=== PATIENT | male | born 1935 | race Caucasian/White ===

== ENCOUNTER → 2021-06-17 09:32 | Outpatient (CLI) | payer MEDICARE, OTHER, SELFPAY ==
--- NOTE | 2021-06-17 | DI.RAD.S_ITS ---
PROCEDURE: FL BARIUM SWALLOW W SPEECH INDICATIONS: Cerebral infarction, unspecified COMPARISON: None. TECHNIQUE: Examination was conducted in conjunction with speech pathology per standard protocol. In the lateral projection, filming was performed of the patient swallowing. AP projection filming may also be performed with patient swallowing. COMPARISON: FINDINGS: Cervical spondylosis and facet disease. Function: The oral preparatory phase appears normal, with proper containment. The subsequent oral propulsive phase, pharyngeal phase, and esophageal phase of swallowing also appear normal with all proffered substances. No laryngotracheal penetration or aspiration. There is moderate residue. There was moderate prolonged transit of the calibrated barium tablet at the distal esophagus. Esophageal dysmotility is observed. Morphology: No cricopharyngeal bar is identified. No cervical esophageal webs. No Zenker's diverticulum. No strictures. IMPRESSION: No aspiration. Moderate residue. Moderately prolonged transit of barium tablet at the distal esophagus as above. Esophageal dysmotility Dictated by: Matheus Rodriguez M.D. on 06/17/2021 at 14:08 Approved by: Matheus Rodriguez M.D. on 06/17/2021 at 14:09
--- NOTE | 2021-06-18 16:02 | ST.SWALLOW ---
Visit Care Team Role Provider Type Antonio Abbasi MD Attending Provider Non-Staff Primary Care Provider Referring Provider Specialty: Internal Medicine Address: [address] [place] [address], [place], [address] Email: Modified Barium Swallow Study APPLICATION SYSTEMS ADMINISTRATOR Modified Barium Swallow Study Start: 06/17/21 14:41 Freq: Status: Active Protocol: Document 06/18/21 14:52 LNK (Rec: 06/18/21 15:52 LNK [id number]) Modified Barium Swallow Study Total Time Visit Start Time 10:30 Visit Stop Time 11:00 Total Visit Minutes 30 Referral Referring Physician Antonio Abbasi MD Reason for Referral dysphagia Setting Setting Outpatient Care Patient Information Identification Type Name,Date of Patient History Pt was seen for a Modified Barium Swallow Study (MBSS) secondary to c/o difficulty with swallowing. 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 He also reported that he was diagnosed with a hiatal hernia years ago. Pt describes his swallowing as difficult I have to swallow very hard. He reports pills, foods and liquids get caught in his throat and he coughs frequently during the day. At times, he stated, he has regurgitated undigested foods. Subjective Observations Pt was seated in the fluoroscopy chair. Instruction and procedures were described to the pt, who indicated he understood and agreed to proceed. Patient Positioning Position View Lat-A/P Imaging Lateral View Textures Administered Trials Presented Thin Liquid via Spoon,Thin Liquid via Cup,Pudding Thick Liquid via Spoon,Regular Textures Oral Phase Source: MBSIMP (TM) (C) Bolus Specific Scoring Grid Lip Closure No Impairment (WNL) Tongue Control During Bolus Hold No Impairment (WNL) Bolus Prep/Mastication No Impairment (WNL) Bolus Transport/Lingual Motion Minimal Impairment A/P Lingual Propulsion Delay No Oral Residue No Impairment (WNL) Nasal Regurgitation No Additional Oral Phase Observations OME indicated structures and function to be WNL for ROM and strength. Diadochokineses was slightly slower than expected with a very mild dysarthria noted. Pt's speech was 100% intelligible. Pt has an upper partial denture that remained in his mouth during the MBSS. Otherwise, the pt's dentition was adequate and in good hygiene. 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 Clearance of Residue Along Tongue Base Minimal Impairment Laryngeal Elevation WFL Anterior Hyoid Movement WFL Epiglottic Range of Motion WFL Vallecular Residue Yes: observed across all trials Clearance of Vallecular Residue Mild Impairment Laryngeal Vestibular Closure Minimal Impairment Pharyngeal Stripping Wave Mild Impairment Posterior Pharyngeal Wall Residue Yes Clearance of Posterior Pharyngeal Wall Mild Impairment Residue Upper Esophageal Sphincter Opening Mild Impairment Residue in the Pyriform Sinuses Yes Clearance of Residue in the Pyriform Mild Impairment Sinuses Esophageal Clearance Upright Position Mild Impairment Pharyngoesophageal Backflow Observed No Additional Pharyngeal Phase Observations Hyolaryngeal elevation and movement and epiglottic inversion appeared to be WFL. The epiglottis was inverted to seal the laryngeal vestibule. No penetration nor aspiration were observed with thin contrast and trialed solids. Even though there was adequate laryngeal seal, the tip of the epiglottis was horizontal, resulting in decreased linguapharyngeal contact. With the epiglottis in that position, it is possible for small amounts of water to penetrate the larynx. As an example, during the MBSS, the pt was drinking sips of water in an attempt to clear the pharyngeal residue. The pt did did cough with water, which is thinner than the thin barium. There was no cough with thin barium. Pharyngeal pooling was observed in the valeculla, the pyriform sinuses, the posterior pharyngeal wall and at the UES . As the pt swallowed the trials, there appeared to be large air bubbles that were swallowed as well. However the pt did not c/o air or the need to burp. He was not observed to burp. This was consistent across all trials. Initially, the bubbles were thought to be structural, but there was no way to determine if there was air or structural difference. The pt's pharynx and pyriform sinuses were large. The UES extension and duration appeared to be reduce , leaving residue at the UES and in the pyriform sinuses. This may account for the pt's remark that he needs to swallow hard in order to pass the bolus into the esophagus. A/P View Textures Administered Trials Presented Barium Tablet A/P View Observations Esophageal Function Slowed Clearing,Poor Motility, Stasis Additional Observations In the A-P position, the pt was observed to swallow an 11mm barium tablet. Three attempts were made to swallow the tablet. After leaving the mouth, the table went to the esophagus via a large arc through the right side of his throat near the larynx and pyriform sinuses. The barium tablet then remained in the distal esophagus for ~95 seconds before it passed into the stomach via a sip if thicker liquid. It is possible that, as the pt eats, foods and liquids are remaining in the esophagus and slowly building, leading to regurgitation of esophageal contents and/or penetration/ aspiration, resulting in coughing. Clinical Impressions Dysphagia Type pharyngoesophageal dysphagia Findings The pt's difficulty with swallowing appear to be related to the esophageal phase of swallowing. Recommend GI referral for consult/ evaluation. Additionally a referral to ENT for evaluation /consult re: laryngoceles, large pharynx and question swallowing air or a structural difference. Patient Appropriate for Therapy Yes: Following above ENT, GI consultations as indicated Recommendations Diet Comments pt to continue current diet Aspiration Precautions Recommended Precautions Upright at 90 Degrees, Alternate Liquids/Solids, Frequent Rest Periods,Small Bites/Sips Additional Precautions Discussed above precautions with pt and his following MBSS Treatment Plan Recommended Referrals GI Consult,ENT Consult Compensatory Strategies Recommendations Sitting Upright (90 deg),Small Bites and Sips,Alternate Liquids/Solids
== END ==
PROVIDERS: PCP Internal Medicine; Referring Provider Internal Medicine; Visit Provider Internal Medicine
DX: I63.9 Cerebral infarction, unspecified (principal); K22.4 Dyskinesia of esophagus
CPT/HCPCS: 74230; 92611

== ENCOUNTER → 2023-08-07 09:26 | Outpatient (CLI) | payer MEDICARE, OTHER, SELFPAY ==
--- NOTE | 2023-08-07 | DI.ECHO.S_ITS ---
[facility]+ [facility] +---------+ : : [address] [place] : : : : [id number] : : : : Phone: [phone] Echocardiogram Report + + :Name: DIANA PENA Study Date: 08/07/2023 Height: 68 in : [facility] ReadingLocation: Weight: 205 lb : : Gender: Male BSA: 2.1 m2 : :: 1935 Age: 88 yrs BP: 144/68 mmHg: :Reason For Study: SYSTOLIC HEART FAILURE : :Ordering Physician: SIGRID, : :GERTRUDIS Hall Performed By: Kavya Freeman : :Referring: GERTRUDIS SOLIS : + + Interpretation Summary The ejection fraction is estimated to be 30-35%. There is severe hypokinesis to akinesis of the mid to distal anterior, septal, lateral and distal inferior harvey. Grade II diastolic dysfunction. The right ventricle is normal in size and function. There is mild to moderate mitral regurgitation. There is trace aortic regurgitation. Pulmonary artery pressures cannot be estimated because of the lack of a measurable TR jet velocity but the IVC suggests a CVP of around 3 mmHg. The ascending aorta is mildly enlarged, 4.0 cm. Compared to the prior study dated, the segmental wall motion abnormalities appear lost consistent with an old anterior [place]. Procedure: A two-dimensional transthoracic echocardiogram with color flow and Doppler was performed. The study quality was technically adequate. Comparison is made with the echocardiogram of 03/18/2023. The patient was in sinus rhythm with heart rates between 76-86 bpm during the exam. Left Ventricle: The left ventricle is normal in size. Proximal septal thickening is noted. The ejection fraction is estimated to be 30-35%. There is severe hypokinesis to akinesis of the mid to distal anterior, septal, lateral and distal inferior harvey. Diastolic parameters suggest a pseudonormalization pattern, consistent with probable elevated filling pressures. Right Ventricle: The right ventricle is normal in size and function. Atria: The left atrial size is normal. Right atrial size is normal. There is no Doppler evidence for an interatrial shunt. Mitral Valve: There is moderate mitral annular calcification. The mitral valve leaflets are mildly calcified. The mitral valve mean gradient is 3.07 mmHg. There is mild to moderate mitral regurgitation. Aortic Valve: The aortic valve is trileaflet. The aortic valve opens well. There is no aortic valve stenosis. There is trace aortic regurgitation. Tricuspid Valve: The tricuspid valve is normal in structure and function. There is trace tricuspid regurgitation. Pulmonary artery pressures cannot be estimated because of the lack of a measurable TR jet velocity but the IVC suggests a CVP of around 3 mmHg. Pulmonic Valve: The pulmonic valve is not well seen, but is grossly normal. There is no pulmonic valvular regurgitation. Great Vessels: The aortic root is normal size. The ascending aorta is mildly enlarged. The IVC is of normal diameter and collapses greater than 50% with a sniff. This suggests a low right atrial pressure of 3 mm Hg. Pericardium/ Pleura There is no pericardial effusion. There is no pleural effusion. MMode/2D Measurements & Calculations LVIDd: 5.9 cm LVOT diam: 2.0 cm LVIDs: 4.7 cm Ao root diam: 3.4 cm FS: 19.6 % asc Aorta Diam: 4.0 cm EPSS: 1.0 cm IVSd: 0.98 cm LVPWd: 0.86 cm LV marie. diameter/BSA (cm/m^2): 2.8 LV sys. diameter/BSA (cm/m^2): 2.3 LA A2 area: 17.4 cm2 RA long axis: 5.4 cm LA A4 area: 20.8 cm2 RA area: 17.3 cm2 LA length (vol): 5.2 cm RA vol: 47.5 ml LA vol: 59.6 ml RA : 23.0 ml/m2 LA vol index: 28.9 ml/m2 IVC diam: 1.6 cm RVD1 (basal): 3.5 cm RVD2 (mid): 2.7 cm TAPSE: 2.0 cm Doppler Measurements & Calculations Ao V2 max: 134.6 cm/sec LVOT Max Shailesh: 86.3 cm/sec Ao V2 mean: 101.0 cm/sec LV V1 max P.0 mmHg Ao max P.2 mmHg LV V1 VTI: 17.1 cm Ao mean P.4 mmHg YIFAN(I,D): 2.0 cm2 Ao V2 VTI: 28.8 cm YIFAN(V,D): 2.1 cm2 sev ratio: 0.59 YIFAN indexed to BSA (cm^2/m^2): 0.94 MV E max shailesh: 106.3 cm/sec TR max shailesh: 282.5 cm/sec MV A max shailesh: 143.1 cm/sec TR max P.3 mmHg MV E/A: 0.74 PA V2 max: 94.6 cm/sec Med Peak E' Shailesh: 4.4 cm/sec PA V2 mean: 68.3 cm/sec E/E' med: 23.9 PA mean P.0 mmHg Lat Peak E' Shailesh: 5.7 cm/sec PA pr(Accel): 43.0 mmHg E/E' lat: 18.7 E/e' average: 21.3 MV dec time: 0.16 sec MVA(VTI): 1.5 cm2 MR ERO: 0.29 cm2 MV V2 mean: 79.0 cm/sec MR PISA: 3.5 cm2 MV mean P.1 mmHg MR flow rate: 133.6 cm3/sec MV V2 VTI: 37.0 cm MR PISA radius: 0.75 cm SV(LVOT): 56.3 ml Reading Physician:02:07 PM
== END ==
PROVIDERS: PCP Internal Medicine; Referring Provider Internal Medicine Cardiovascular Disease; Visit Provider Internal Medicine Cardiovascular Disease
DX: I34.81 Nonrheumatic mitral (valve) annulus calcification (principal); I34.0 Nonrheumatic mitral (valve) insufficiency; I77.89 Other specified disorders of arteries and arterioles; I50.20 Unspecified systolic (congestive) heart failure
CPT/HCPCS: 93306